=== PATIENT | male | born 1955 | race Caucasian/White ===

== ENCOUNTER 2024-02-29 07:00 | Inpatient (IN) | payer OTHER ==
[~2024-02-29] VITALS: Ht 185.4 cm; Wt 105.8 kg
[2024-03-02] MEDS ORDERED: ACETAMINOPHEN 500 MG TABLET ONE (07:32)
[2024-03-02] MEDS ORDERED: oxyCODONE HCL 10 MG TAB.ER.12H PO ONE (07:34)
[2024-03-02] MEDS ORDERED: GABAPENTIN 300 MG CAPSULE ONE (07:35)
[2024-03-02] MEDS ORDERED: CEFAZOLIN SOD 2 GM in D5W 50 ML IV ONE (07:45)
[2024-03-02] MEDS: ACETAMINOPHEN 500 MG TABLET PO ONE (08:01)
[2024-03-02] MEDS: GABAPENTIN 300 MG CAPSULE PO ONE (08:01)
[2024-03-02] MEDS ORDERED: fentaNYL CITRATE/PF 100 MCG/2 ML AMP ONE ×2 (09:50→11:10)
[2024-03-02] MEDS ORDERED: MIDAZOLAM HCL 2 MG/2 ML VIAL (VERSED) ONE (09:51)
[2024-03-02] MEDS ORDERED: ACETAMINOPHEN I.V. 1000 MG 100 ML IV ONE (09:51)
[2024-03-02] MEDS: oxyCODONE HCL 10 MG TAB.ER.12H PO ONE (09:58)
[2024-03-02] MEDS ORDERED: NS IRRIG SOLN 1000 ML IR ONE (10:02)
[2024-03-02] MEDS ORDERED: ONDANSETRON HCL 4 MG/2 ML VIAL ONE (10:02)
[2024-03-02] MEDS ORDERED: LR 1,000 ML IV.SOLN IV ONE (10:02)
[2024-03-02] MEDS ORDERED: SEVOFLURANE 15 MIN GAS INH ONE (10:02)
[2024-03-02] MEDS ORDERED: LIDOCAINE 1% 10 MG/ML, 20 ML MDV ONE (10:02)
[2024-03-02] MEDS ORDERED: ROPIVACAINE HCL/PF 5 MG/ML 0.5% 30 ML VIAL ONE (10:02)
[2024-03-02] MEDS ORDERED: TRANEXAMIC ACID 1,000 MG/10 ML VIAL ONE (10:02)
[2024-03-02] MEDS ORDERED: PROPOFOL 200MG/ 20ML VIAL (DIPRIVAN) IV ONE (10:02)
[2024-03-02] MEDS ORDERED: WATER FOR IRRIGATION,STERILE 1,000 ML IRRIG.SOLN IR ONE (10:02)
[2024-03-02] MEDS ORDERED: EPINEPHRINE HCL/PF 1 MG/ML AMP ONE (10:02)
[2024-03-02] MEDS ORDERED: VANCOMYCIN HCL 1000 MG/VIAL IV ONE (10:02)
[2024-03-02] MEDS ORDERED: LR 1,000 ML IV ONE (10:45)
[2024-03-02] MEDS ORDERED: fentaNYL CITRATE/PF 100 MCG/2 ML AMP IVP PRN ×2 (10:45)
[2024-03-02] MEDS ORDERED: NALOXONE HCL 0.4 MG/ML AMP (NARCAN) IVP PRN (10:45)
[2024-03-02] MEDS ORDERED: ONDANSETRON HCL 4 MG/2 ML VIAL IVP PRN (10:45)
[2024-03-02 11:06] VITALS: PULSE 79; RESP 18; TEMP 97.6; O2SAT 96
[2024-03-02] MEDS: HYDROmorphone 1 MG/ML INJ. CARTRIDGE IVP PRN (12:10)
[2024-03-02] MEDS ORDERED: TAMSULOSIN HCL 0.4 MG CAP PO ONE (12:45)
[2024-03-02] MEDS ORDERED: HYDROmorphone 1 MG/ML INJ. CARTRIDGE ONE (12:50)
[2024-03-02 12:56] VITALS: BP_SYST 125
[2024-03-02] MEDS: CEFEPIME 2 GM in D5W 100 ML IV SCH (16:30)
[2024-03-03] MEDS ORDERED: TAMSULOSIN HCL 0.4 MG CAP PO SCH (09:00)
== END 2024-03-02 17:00 | disposition home health service (06) | DRG 470 ==
LOC: SMU 03-02 07:18
PROVIDERS: ADMIT Orthopaedic Surgery Sports Medicine; ATTEND Orthopaedic Surgery Sports Medicine
PROC: 3E0T3BZ Introduction of Anesthetic Agent into Peripheral Nerves and Plexi, Percutaneous Approach (ICD-10-PCS; 2024-03-02)
PROC: 0SRD0JA Replacement of Left Knee Joint with Synthetic Substitute, Uncemented, Open Approach (ICD-10-PCS; principal; 2024-03-02 10:02)
DX: M17.12 Unilateral primary osteoarthritis, left knee (principal); Z79.899 Other long term (current) drug therapy; I10 Essential (primary) hypertension; E11.9 Type 2 diabetes mellitus without complications; Z88.8 Allergy status to other drugs, medicaments and biological substances
CPT/HCPCS: 73560; 82948; 87081; 88305; 88311; 97110-GP; 97116-GP; 97530-GP; A4649; C1776; J0131; J0171; J0690; J0692; J1170; J2001; J2250; J2405; J2704; J3010; J3370; J3490; J7060; J7120